=== PATIENT | female | born 1975 | race Caucasian/White ===

== ENCOUNTER 2024-02-03 00:20 | Emergency (ER) | payer OTHER ==
[2024-02-03] MEDS ORDERED: Benzonatate 100 MG CAP ONE (00:58)
[2024-02-03] MEDS ORDERED: Ipratropium/Albuterol 3 ML NEB ONE (00:58)
[2024-02-03] MEDS ORDERED: predniSONE 20 MG TAB ONE (00:59)
[2024-02-03] MEDS ORDERED: Doxycycline 100 MG CAP ONE (01:12)
== END 2024-02-03 01:20 | disposition home or self-care (01) ==
LOC: MADERS 00:20
DX: J45.901 Unspecified asthma with (acute) exacerbation (principal); J01.90 Acute sinusitis, unspecified; F17.210 Nicotine dependence, cigarettes, uncomplicated; Z79.899 Other long term (current) drug therapy
CPT/HCPCS: J7512; J7620